=== PATIENT | male | born 1985 | race Caucasian/White ===

== ENCOUNTER 2018-02-26 19:10 | Emergency (ER) | payer OTHER ==
[~2018-02-26] VITALS: Ht 180.3 cm; Wt 77.1 kg
[~2018-02-26 19:10] MED LIST: CYCLOBENZAPRINE10 MG PO; DICLOFENAC SOD50 MG PO; FLEXERIL5 MG PO; KEFLEX500 MG PO; MOTRIN800 MG PO; NEURONTIN300 MG PO; PENICILLIN VK500 MG PO; PERCOCET 325 MG1 TA2 PO; TRAMADOL HCL50 MG PO; VICODIN 5/500 505 MG PO
== END 2018-02-26 19:26 | disposition left against medical advice (07) ==
LOC: ED 19:10
DX: F11.10 Opioid abuse, uncomplicated (principal); Z98.890 Other specified postprocedural states